=== PATIENT | female | born 1995 | race African-American/Black ===

== ENCOUNTER 2018-07-22 22:59 | Emergency (ER) | payer MEDICAID ==
[~2018-07-22] VITALS: Ht 162.6 cm; Wt 49.9 kg
[2018-07-22 23:04] VITALS: BP_SYST 119
[2018-07-22 23:28] LABS: BILIRUBIN,URINE NEGATIVE (NEGATIVE); COLOR,URINE YELLOW (YELLOW); GLUCOSE,URINE NEGATIVE (NEGATIVE); KETONES,URINE NEGATIVE (NEGATIVE); LEUKOCYTE ESTERASE ,URINE 1+ (NEGATIVE); NITRITE, URINE NEGATIVE (NEGATIVE); PH,URINE 6.5 (5.0-8.0); PROTEIN URINE NEGATIVE (NEGATIVE); UROBILINOGEN,URINE 0.2 (0.2-1.0)
[2018-07-22 23:29] LABS: BLOOD, URINE TRACE (NEGATIVE); CLARITY/URINE SLIGHTLY HAZY (CLEAR)
[2018-07-22 23:35] LABS: BACTERIA,URINE FEW /HPF (None Seen)
[2018-07-23] MEDS ORDERED: AMOXICILLIN/CLAVULANATE POTASSIUM 875 MG TABLET PO ONE (00:30)
[2018-07-23] MEDS ORDERED: PHENAZOPYRIDINE HCL 100 MG TABLET PO ONE (00:30)
[2018-07-23 01:00] VITALS: BP_SYST 117
== END 2018-07-23 01:05 | disposition home or self-care (01) ==
LOC: SED 22:59
DX: N39.0 Urinary tract infection, site not specified (principal); Z88.1 Allergy status to other antibiotic agents
CPT/HCPCS: 81000-TC; 81025; 87086; 99284